=== PATIENT | male | born 1995 | race Caucasian/White ===

== ENCOUNTER 2016-04-01 13:23 | Emergency (ER) | payer SELFPAY ==
[2016-04-01] MEDS ORDERED: Ondansetron ODT 4 MG TAB ONE (14:01)
--- NOTE | 2016-04-01 14:27 | ERRECORD ---
[facility] EMERGENCY RECORD HPI NAUSEA/VOMITING/DIARRHEA (13:55 DHAM) CHIEF COMPLAINT: Patient presents for evaluation of nausea, Patient presents for evaluation of vomiting, Patient presents for evaluation of diarrhea. HISTORIAN: History provided by patient. LOCATION MALE: No localizing symptoms. QUALITY: Pain is dull in nature, described as cramping. SEVERITY: Current severity of pain rated as 6/10. TIME COURSE: Gradual onset of symptoms, 2, days priror to arrival, Symptoms are improving, "lots better today than yesterday but my work said that I needed a note.". ASSOCIATED WITH MALE: Associated with chills, Associated with diarrhea, Number of times: 5, No associated fever, No associated flank pain, No associated genital discharge, Associated with loss of appetite, Associated with nausea, No associated urinary tract infection signs or symptoms, Associated with vomiting, Number of times: 5 yest and 2x today. EXACERBATED BY: Patient's condition exacerbated by food. RELIEVED BY: Patient's condition relieved by nothing. ROS (13:57 DHAM) CONSTITUTIONAL: Historian reports chills, denies fever, denies lethargy. ENT: Historian denies rhinorrhea, denies sore throat, denies voice changes. CARDIOVASCULAR: Historian denies chest pain, no radiation, Historian denies diaphoresis, denies syncope, denies palpitations. RESPIRATORY: Historian denies cough, denies shortness of breath, denies sputum. GI: Historian reports abdominal pain, reports anorexia, reports diarrhea, reports nausea, reports vomiting. GENITOURINARY MALE: Historian denies dysuria, denies urinary frequency, denies urinary urgency. MUSCULOSKELETAL: Historian denies arthralgias, denies back pain, denies myalgias. SKIN: Historian denies rash, denies skin changes. NEUROLOGIC: Historian denies dizziness, denies headache. HEMO/LYMPHATIC: Historian denies abnormal blood clotting, denies easy bruising. PAST MEDICAL HISTORY MEDICAL HISTORY: Notes: head injury. (13:35 SCHI) MALE SURGICAL HISTORY: head. (13:35 SCHI) PSYCHIATRIC HISTORY: Notes: add. (13:35 SCHI) SOCIAL HISTORY: Patient denies alcohol use, Patient is a former drug user, abused methamphetamines, Drug history notes: stopped 5 months ago, Patient is a former tobacco user, smoked cigarettes, Patient quit smoking in the past year, Tobacco history &a-1R&a+25V*p+0X*v2547Q*c202B*c15G*c2P*p-0X&a-25V&a+1R Name: Ba Montoya : 1995 M20 MedRec: [id number] AcctNum: [id number] Prepared: MonApr 01, 2016 14:23 by Interface Page 1 of 3 pMD [facility] EMERGENCY RECORD notes: quit 4 months ago. (13:35 SCHI) NOTES: HAVE EXAMINED AND AGREE WITH PMHX, SOCIAL HX AND PAST FAMILY HX as noted in nursing docuentation. (13:59 DHAM) KNOWN ALLERGIES No Known Drug Allergies CURRENT MEDICATIONS (13:35 SCHI) None VITAL SIGNS (13:33 SCHI) VITAL SIGNS: BP: 124/62, Pulse: 79, Resp: 18, Temp: 98.1 (Tympanic), Pain: 6 (Intermittent), O2 sat: 95 on Room Air, Time: 04/01/2016 13:33. PHYSICAL EXAM (13:58 DHAM) CONSTITUTIONAL: Vital signs reviewed, Patient afebrile, Pulse normal, Blood pressure normal, Respiratory rate normal, Patient appears non toxic, Patient appears pain free, Patient alert and oriented to person, place and time, does not appear ill. HEAD: Head exam included findings of head atraumatic, normocephalic. EYES: Eye exam included findings of eyelids normal to inspection, Pupils equally round and reactive to light, Extraocular muscles intact, Conjunctiva normal. ENT: ENT exam normal, Ear exam normal, external ear normal, tympanic membranes normal, Nose exam normal, no bleeding from nares, Pharynx exam normal, Uvula exam normal, Tonsil exam normal, not enlarged, no exudates, Mouth exam normal, mucous membranes moist. NECK: Neck exam included findings of normal range of motion, Trachea midline, no carotid bruits, no jugular venous distention, no cervical adenopathy. RESPIRATORY CHEST: Respiratory exam included findings of no respiratory distress, Breath sounds clear, No wheezing, No rales, Breath sounds not diminished. CARDIOVASCULAR: Cardiovascular exam included findings of heart rate regular rate and rhythm, Heart sounds normal, Point of maximal impulse normal, Pedal pulses normal. ABDOMEN MALE: Abdominal exam included findings of abdomen nontender, Bowel sounds normal, Liver normal, Spleen normal, no distension, no peritoneal signs. BACK: Back exam normal. UPPER EXTREMITY: Upper extremity exam normal, Motor strength normal, Sensation intact. LOWER EXTREMITY: Lower extremity exam normal. NEURO: Neuro exam findings include patient oriented to person, place and time, Speech normal, Memory normal, Cranial nerves intact, Deep tendon reflexes normal, no focal motor deficits, no focal sensory deficits. SKIN: Skin exam included findings of skin warm, dry, no rash. &a-1R&a+25V*p+0X*p8389V*c202B*c15G*c2P*p-0X&a-25V&a+1R Name: Ba Montoya : 1995 10 MedRec: [id number] AcctNum: [id number] Prepared: MonApr 01, 2016 14:23 by Interface Page 2 of 3 pMD [facility] EMERGENCY RECORD LYMPHATIC: Lymphatic exam normal, Lymphatic exam included findings of cervical nodes normal. PSYCHIATRIC: Psychiatric exam included findings of patient oriented to person place and time, Normal affect. MEDICATION ADMINISTRATION SUMMARY Drug Name: Zofran ODT, Dose Ordered: 4 mg, Route: Sublingual, Status: Given, Time: 14:00 04/01/2016, Detailed record available in Medication Service section. PROBLEM LIST No recorded problems DIAGNOSIS (13:59 DHAM) FINAL: PRIMARY: viral gastroenteritis. PRESCRIPTION No recorded prescriptions DISPOSITION PATIENT: Disposition Type: Discharge, Disposition: *Discharge Home. (13:59 DHAM) Patient left the department. (14:19 [facility] Alberts: ZINA=MD Fer, Manas MAYA=GELACIO Fam, Jillian &a-1R&a+25V*p+0X*v9011V*c202B*c15G*c2P*p-0X&a-25V&a+1R Name: Ba Montoya : 1995 M20 MedRec: [id number] AcctNum: [id number] Prepared: MonApr 01, 2016 14:23 by Interface Page 3 of 3 pMD MTDD
--- NOTE | 2016-04-01 14:31 | PICIS ---
[facility] EMERGENCY RECORD TRIAGE (MonApr 01, 2016 13:35 SCHI) TRIAGE NOTES: stomach cramping, vomiting and diarrhea, feeling bad since yesterday. (MonApr 01, 2016 13:35 SCHI) PATIENT: NAME: Ba Montoya, AGE: 20, GENDER: male, : Mon1995, TIME OF GREET: MonApr 01, 2016 13:23, PREFERRED LANGUAGE: Nigerien, ETHNICITY: Not or , ECODE BILLING MAP: [facility], SSN: [id number], Zip Code: [address], KG WEIGHT: [phone], PHONE: , , , PERSON ID: [id number], PCP: none. (MonApr 01, 2016 13:35 SCHI) COMPLAINT: THROWING UP/NOTE FOR WORK. (MonApr 01, 2016 13:35 SCHI) ADMISSION: URGENCY: 4 Non Urgent, ADMISSION SOURCE: Home, TRANSPORT: Walk-in, BED: ED -04. (MonApr 01, 2016 13:35 SCHI) ASSESSMENT: Assessment: ALERT AND ORIENTED X 4, SKIN WARM AND DRY RESP EVEN AND UNLABORED,, Symptoms began yesterday. (13:35 SCHI) PAIN: Patient complains of pain described as, Location stomach, Pain is intermittent. (13:35 SCHI) TRIAGE SCREENING: Patient denies suicidal ideation, Patient denies presence of domestic violence. (13:35 SCHI) PROVIDERS: TRIAGE NURSE: Jillian Fam RN. (MonApr 01, 2016 13:35 SCHI) VITAL SIGNS: BP 124/62, Pulse 79, Resp 18, Temp 98.1, (Tympanic), Pain 6, (Intermittent), O2 Sat 95, on Room Air, Time 04/01/2016 13:33. (13:33 SCHI) PREVIOUS VISIT ALLERGIES: No Known Drug Allergies. (MonApr 01, 2016 13:35 SCHI) No Known Drug Allergies. (13:35 SCHI) KNOWN ALLERGIES No Known Drug Allergies CURRENT MEDICATIONS (13:35 SCHI) None VITAL SIGNS (13:33 SCHI) VITAL SIGNS: BP: 124/62, Pulse: 79, Resp: 18, Temp: 98.1 (Tympanic), Pain: 6 (Intermittent), O2 sat: 95 on Room Air, Time: 04/01/2016 13:33. NURSING ASSESSMENT: ABDOMEN CONSTITUTIONAL: Patient arrives ambulatory, Gait steady, History obtained from patient, Patient appears comfortable, Patient cooperative, Patient alert, Oriented to person, place and time, Skin warm, Skin dry, Skin normal in color, Mucous membranes pink, Mucous membranes moist, Patient is well-groomed, Patient complains of abd cramping and vomiting, diarrhea. missed work yesterday and today needs note to return. (13:40 SCHI) PAIN: cramping pain, intermittent, on a scale 0-10 patient rates pain as 6. (14:19 SCHI) &a-1R&a+25V*p+0X*h2270W*c202B*c15G*c2P*p-0X&a-25V&a+1R Name: Ba Montoya : 1995 M20 MedRec: [id number] AcctNum: [id number] Prepared: Sat Apr 02, 2016 03:17 by Interface Page 1 of 5 pMD [facility] EMERGENCY RECORD ABDOMEN: Abdomen assessment findings include abdomen symmetrical, Abdomen soft. (13:40 SCHI) NOTES: Patient tolerated procedure well. (13:40 SCHI) SAFETY: Side rails up, Cart/Stretcher in lowest position, Family at bedside, Hospital ID band on. (13:40 SCHI) NURSING PLAN OF CARE: Pain:, Patient is able to participate in development and implementation of nursing plan of care for pain. (13:40 SCHI) NURSING PROCEDURE: DISCHARGE NOTE (14:03 SCHI) DISCHARGE: Patient discharged to home, ambulating without assistance, driving self, unaccompanied, Summary of Care printed/ provided, Patient requested and was provided an electronic copy of Discharge Instructions, Transition record given to patient, Discharge instructions given to patient, Simple or moderate discharge teaching performed, Above person(s) verbalized understanding of discharge instructions and follow-up care, Patient treated and evaluated by physician. BELONGINGS: Belongings and valuables with patient at time of discharge include:, Belongings remain with patient, Valuables remain with patient. NOTES: Emotional support needed and given, Patient tolerated procedure well. Notes: PT IMPROVED, PT ENCOURAGED TO RETURN TO ER WITH NEW OR WORSENING SYMPTOMS. SAFETY: Side rails up, Cart/Stretcher in lowest position, Family at bedside, Hospital ID band on. MEDICATION ADMINISTRATION SUMMARY Drug Name: Zofran ODT, Dose Ordered: 4 mg, Route: Sublingual, Status: Given, Time: 14:00 04/01/2016, Detailed record available in Medication Service section. MEDICATION SERVICE (14:00 DHAM) Zofran ODT: Order: Zofran ODT (ondansetron) - Dose: 4 mg : Sublingual Schedule: Now Ordered by: Manas Monroe MD Entered by: Manas Monroe MD MonApr 01, 2016 14:01 Documented as given by: Jillian Fam RN MonApr 01, 2016 14:00 Patient, Medication, Dose, Route and Time verified prior to administration. Site: Medication administered S.L., Correct patient, time, route, dose and medication confirmed prior to administration, Patient advised of actions and side-effects prior to administration, Allergies confirmed and medications reviewed prior to administration. HPI NAUSEA/VOMITING/DIARRHEA (13:55 DHAM) CHIEF COMPLAINT: Patient presents for evaluation of &a-1R&a+25V*p+0X*c1205V*c202B*c15G*c2P*p-0X&a-25V&a+1R Name: Ba Motnoya : 1995 M20 MedRec: [id number] AcctNum: [id number] Prepared: Sat Apr 02, 2016 03:17 by Interface Page 2 of 5 pMD [facility] EMERGENCY RECORD nausea, Patient presents for evaluation of vomiting, Patient presents for evaluation of diarrhea. HISTORIAN: History provided by patient. LOCATION MALE: No localizing symptoms. QUALITY: Pain is dull in nature, described as cramping. SEVERITY: Current severity of pain rated as 6/10. TIME COURSE: Gradual onset of symptoms, 2, days priror to arrival, Symptoms are improving, "lots better today than yesterday but my work said that I needed a note.". ASSOCIATED WITH MALE: Associated with chills, Associated with diarrhea, Number of times: 5, No associated fever, No associated flank pain, No associated genital discharge, Associated with loss of appetite, Associated with nausea, No associated urinary tract infection signs or symptoms, Associated with vomiting, Number of times: 5 yest and 2x today. EXACERBATED BY: Patient's condition exacerbated by food. RELIEVED BY: Patient's condition relieved by nothing. ROS (13:57 DHAM) CONSTITUTIONAL: Historian reports chills, denies fever, denies lethargy. ENT: Historian denies rhinorrhea, denies sore throat, denies voice changes. CARDIOVASCULAR: Historian denies chest pain, no radiation, Historian denies diaphoresis, denies syncope, denies palpitations. RESPIRATORY: Historian denies cough, denies shortness of breath, denies sputum. GI: Historian reports abdominal pain, reports anorexia, reports diarrhea, reports nausea, reports vomiting. GENITOURINARY MALE: Historian denies dysuria, denies urinary frequency, denies urinary urgency. MUSCULOSKELETAL: Historian denies arthralgias, denies back pain, denies myalgias. SKIN: Historian denies rash, denies skin changes. NEUROLOGIC: Historian denies dizziness, denies headache. HEMO/LYMPHATIC: Historian denies abnormal blood clotting, denies easy bruising. PAST MEDICAL HISTORY MEDICAL HISTORY: Notes: head injury. (13:35 SCHI) MALE SURGICAL HISTORY: head. (13:35 SCHI) PSYCHIATRIC HISTORY: Notes: add. (13:35 SCHI) SOCIAL HISTORY: Patient denies alcohol use, Patient is a former drug user, abused methamphetamines, Drug history notes: stopped 5 months ago, Patient is a former tobacco user, smoked cigarettes, Patient quit smoking in the past year, Tobacco history notes: quit 4 months ago. (13:35 SCHI) NOTES: HAVE EXAMINED AND AGREE WITH PMHX, SOCIAL HX AND PAST &a-1R&a+25V*p+0X*n4502F*c202B*c15G*c2P*p-0X&a-25V&a+1R Name: Ba Montoya : 1995 M20 MedRec: [id number] AcctNum: [id number] Prepared: Sat Apr 02, 2016 03:17 by Interface Page 3 of 5 pMD [facility] EMERGENCY RECORD FAMILY HX as noted in nursing docuentation. (13:59 DHAM) PHYSICAL EXAM (13:58 DHAM) CONSTITUTIONAL: Vital signs reviewed, Patient afebrile, Pulse normal, Blood pressure normal, Respiratory rate normal, Patient appears non toxic, Patient appears pain free, Patient alert and oriented to person, place and time, does not appear ill. HEAD: Head exam included findings of head atraumatic, normocephalic. EYES: Eye exam included findings of eyelids normal to inspection, Pupils equally round and reactive to light, Extraocular muscles intact, Conjunctiva normal. ENT: ENT exam normal, Ear exam normal, external ear normal, tympanic membranes normal, Nose exam normal, no bleeding from nares, Pharynx exam normal, Uvula exam normal, Tonsil exam normal, not enlarged, no exudates, Mouth exam normal, mucous membranes moist. NECK: Neck exam included findings of normal range of motion, Trachea midline, no carotid bruits, no jugular venous distention, no cervical adenopathy. RESPIRATORY CHEST: Respiratory exam included findings of no respiratory distress, Breath sounds clear, No wheezing, No rales, Breath sounds not diminished. CARDIOVASCULAR: Cardiovascular exam included findings of heart rate regular rate and rhythm, Heart sounds normal, Point of maximal impulse normal, Pedal pulses normal. ABDOMEN MALE: Abdominal exam included findings of abdomen nontender, Bowel sounds normal, Liver normal, Spleen normal, no distension, no peritoneal signs. BACK: Back exam normal. UPPER EXTREMITY: Upper extremity exam normal, Motor strength normal, Sensation intact. LOWER EXTREMITY: Lower extremity exam normal. NEURO: Neuro exam findings include patient oriented to person, place and time, Speech normal, Memory normal, Cranial nerves intact, Deep tendon reflexes normal, no focal motor deficits, no focal sensory deficits. SKIN: Skin exam included findings of skin warm, dry, no rash. LYMPHATIC: Lymphatic exam normal, Lymphatic exam included findings of cervical nodes normal. PSYCHIATRIC: Psychiatric exam included findings of patient oriented to person place and time, Normal affect. EVENTS TRANSFER: Triage to Emergency Main ED -04. (MonApr 01, 2016 13:35 SCHI) Removed from Emergency Main ED -04. (14:19 SCHI) O2SAT INTERPRETATION (13:59 DHAM) O2SAT: Single pulse oximetry, Oxygen saturation 95%, on room air, Oxygen saturation interpretation: Normal, No intervention required. &a-1R&a+25V*p+0X*l0731A*c202B*c15G*c2P*p-0X&a-25V&a+1R Name: Ba Montoya : 1995 M20 MedRec: [id number] AcctNum: [id number] Prepared: Sat Apr 02, 2016 03:17 by Interface Page 4 of 5 pMD [facility] EMERGENCY RECORD PROBLEM LIST No recorded problems DIAGNOSIS (13:59 DHAM) FINAL: PRIMARY: viral gastroenteritis. DISPOSITION PATIENT: Disposition Type: Discharge, Disposition: *Discharge Home. (13:59 DHAM) Patient left the department. (14:19 SCHI) INSTRUCTION (14:00 DHAM) DISCHARGE: GASTROENTERITIS, VIRAL (7Y-ADULT). SPECIAL: No milk or caffeine for the next 48 hours Gatorade or powerade small volumes frequently with dry saltine crackers for today Out of work yesterday and today . Return for signs of dehydration that we discussed or for any other concerns. PRESCRIPTION No recorded prescriptions IMAGING (14:17 SCHI) *DISCHARGE INSTRUCTIONS RECEIPT: Image captured from scanner. *SUPPLY CHARGE SHEET: Image captured from scanner. ADMIN DIGITAL SIGNATURE: GELACIO Fam, Jillian. (14:19 SCHI) MD Monroe Darren. (Sat Apr 02, 2016 03:03 DHAM) Alberts: ZINA=MD Monroe Darren SCHI=GELACIO Fam Slinda &a-1R&a+25V*p+0X*y5906F*c202B*c15G*c2P*p-0X&a-25V&a+1R Name: Ba Montoya : 1995 M20 MedRec: [id number] AcctNum: [id number] Prepared: Sat Apr 02, 2016 03:17 by Interface Page 5 of 5 pMD MTDD
== END 2016-04-01 14:03 | disposition home or self-care (01) ==
LOC: MADERS 13:23
DX: A08.4 Viral intestinal infection, unspecified (principal); Z87.891 Personal history of nicotine dependence
CPT/HCPCS: 99283; Q0162

== ENCOUNTER 2016-04-13 16:42 | Emergency (ER) | payer SELFPAY ==
[2016-04-13] MEDS ORDERED: Fentanyl 100 MCG/2 ML VIAL ONE ×2 (16:47→17:44)
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
[2016-04-13 17:59] LABS: Bilirubin Negative (Negative); Blood, Urine Negative (Negative); Clarity Clear (Clear); Glucose, Urine (Dipstick) Negative (Negative); Leukocyte Negative (Negative); Nitrite Negative (Negative); Protein, Urine (Dipstick) Negative (Neg-Trace); Urobilinogen 0.2 mg/dL (0.2-1.0)
[2016-04-13 18:03] LABS: Hemoglobin 16.7 g/dL (14.0-18.0); MDiff Complete? YES; Mean Corpuscular HGB CONC 35.8 g/dL (32.0-36.0); Mean Corpuscular Hemoglobin 31.1 pg (25.0-35.0); Mean Platelet Volume 8.2 fL (7.4-10.4); Platelet Count 376 thou/uL (130-400); RBC Distribution Width 11.2 % (11.5-14.5); Red Blood Cell (RBC) Count 5.35 mill/uL (4.00-5.20)
[2016-04-13 18:04] LABS: Band 2 % (5-11); Eosinophils 2 % (0-10); Lymphocytes 38 % (28-48); Monocytes 8 % (0-4)
[2016-04-13 18:05] LABS: Neutrophil 50 % (31-61)
[2016-04-13 18:16] LABS: ALT (SGPT) 51 U/L (0-55); AST (SGOT) 29 U/L (10-45); Albumin 4.6 g/dL (3.5-5.0); Alkaline Phosphatase 122 U/L (Less than 750); Anion Gap 22 mmol/L (10-20); BUN (Urea Nitrogen) 13 mg/dL (8.4-21.0); Bilirubin, Total 0.5 mg/dL (0.2-1.2); Calc. Creatinine Clearance 0 mL/min (70-130); Calcium 9.6 mg/dL (7.8-10.44); Carbon Dioxide 19 mmol/L (22-29); Chloride 102 mmol/L (98-107); Estimated GFR-MDRD Greater than 90; Glucose 131 mg/dL (70-105); Potassium 3.1 mmol/L (3.5-5.1); Protein, Total 7.6 g/dL (6.0-8.3); Sodium 140 mmol/L (136-145)
[2016-04-13 18:16] LABS: Amphetamine Not Detected (NotDetected); Barbiturates Screen Not Detected (NotDetected); Benzodiazepine Screen Not Detected (NotDetected); Cocaine Metabolite Screen Not Detected (NotDetected); Medtox Control Line Valid? VALID (VALID); Methadone Not Detected (NotDetected); Methamphetamine Not Detected (NotDetected); Opiate Screen Not Detected (NotDetected); Oxycodone Screen Not Detected (NotDetected); Phencyclidine (PCP) Not Detected (NotDetected); THC/Cannabinoid Screen Not Detected (NotDetected); Tricyclic Screen Not Detected (NotDetected)
== END 2016-04-13 17:51 | disposition short-term general hospital (02) ==
LOC: MADERS 16:42
DX: T52.0X1A Toxic effect of petroleum products, accidental (unintentional), initial encounter (principal); T20.62XA Corrosion of second degree of lip(s), initial encounter; T23.602A Corrosion of second degree of left hand, unspecified site, initial encounter; T23.601A Corrosion of second degree of right hand, unspecified site, initial encounter; T20.64XA Corrosion of second degree of nose (septum), initial encounter; T20.66XA Corrosion of second degree of forehead and cheek, initial encounter; T22.60XA Corrosion of second degree of shoulder and upper limb, except wrist and hand, unspecified site, initial encounter; T32.11 Corrosions involving 10-19% of body surface with 10-19% third degree corrosion; Z87.891 Personal history of nicotine dependence
CPT/HCPCS: 71010; 80053; 80306; 81003; 85025; 90471; 96374; 96376; J3010

== ENCOUNTER 2018-12-29 01:27 | Emergency (ER) | payer SELFPAY ==
[2018-12-29] MEDS ORDERED: Sodium Chloride 0.9% 100 ML ONE (02:02)
[2018-12-29] MEDS ORDERED: cefTRIAXone\\ROCEPHIN 1 GM VIAL ONE (02:02)
[2018-12-29] MEDS ORDERED: Sodium Chloride 0.9% 1,000 ML ONE (02:02)
[2018-12-29] MEDS ORDERED: Sodium Chloride 0.9% 250 ML 250 ML ONE (02:03)
[2018-12-29 02:14] LABS: #Basophils 0.1 thou/uL (0.0-0.2); #Eosinphils 0.4 thou/uL (0.0-0.7); #Lymphocytes 1.7 thou/uL (1.20-3.40); #Monocytes 0.8 thou/uL (0.11-0.59); #Neutrophils 4.6 thou/uL (1.40-6.50); %Basophils 0.9 % (0.0-1.0); %Eosinophils 5.8 % (0.0-10.0); %Neutrophils 60.4 % (42.0-75.0); Hemoglobin 14.7 g/dL (14.0-18.0); Mean Corpuscular HGB CONC 32.6 g/dL (32.0-36.0); Mean Corpuscular Hemoglobin 29.1 pg (27.0-31.0); Mean Corpuscular Volume 89.5 fL (78.0-98.0); Mean Platelet Volume 6.4 fL (7.4-10.4); Platelet Count 351 thou/uL (130-400); RBC Distribution Width 12.3 % (11.5-14.5); Red Blood Cell (RBC) Count 5.04 mill/uL (4.70-6.10); White Blood Cell (WBC) Count 7.6 thou/uL (4.8-10.8)
[2018-12-29 02:47] LABS: Anion Gap 16 mmol/L (10-20); BUN (Urea Nitrogen) 10 mg/dL (8.9-20.6); Calc. Creatinine Clearance 0 mL/min (70-130); Calcium 9.4 mg/dL (7.8-10.44); Carbon Dioxide 24 mmol/L (22-29); Chloride 104 mmol/L (98-107); Estimated GFR-MDRD Greater than 90; Glucose 124 mg/dL (70-105); Potassium 3.8 mmol/L (3.5-5.1); Sodium 140 mmol/L (136-145)
--- NOTE | 2018-12-29 08:39 | RAD ---
LEFT KNEE 4 VIEWS: Date: 12/29/18 HISTORY: Cellulitis. FINDINGS: No fracture, dislocation, or bony destruction is seen. No periosteal reaction is identified. IMPRESSION: No radiographic evidence of osteomyelitis. POS: [facility]
--- NOTE | 2018-12-29 08:41 | RAD ---
LEFT FEMUR 2 VIEWS: Date: 12/29/18 HISTORY: Cellulitis. FINDINGS/IMPRESSION: The left femur is intact. There is no radiographic evidence of osteomyelitis. POS: [facility]
== END 2018-12-29 02:38 | disposition short-term general hospital (02) ==
LOC: MADERS 01:27
DX: L03.116 Cellulitis of left lower limb (principal); L97.229 Non-pressure chronic ulcer of left calf with unspecified severity; F17.210 Nicotine dependence, cigarettes, uncomplicated
CPT/HCPCS: 36415; 80048; 83605; 85025; 87040; 87070; 87077; 87205; 96374; 96375; J0696; J3370; J3490; J7050

== ENCOUNTER 2019-02-16 19:12 | Emergency (ER) | payer SELFPAY ==
[2019-02-16 20:03] LABS: Bilirubin Negative (Negative); Blood, Urine Negative (Negative); Clarity Slightly Cloudy (Clear); Glucose, Urine (Dipstick) Negative (Negative); Leukocyte Negative (Negative); Nitrite Negative (Negative); Protein, Urine (Dipstick) Negative (Neg-Trace); Urobilinogen 0.2 mg/dL (Less than 2)
[2019-02-17 15:42] LABS: HIV (1/2) Antibody/Antigen Non-Reactive (NonReactive)
[2019-02-19 20:51] LABS: Chlam.trachomatis by PCR,Urine Not Detected (NotDetected)
== END 2019-02-16 20:20 | disposition home or self-care (01) ==
LOC: MADERS 19:12
DX: Z20.2 Contact with and (suspected) exposure to infections with a predominantly sexual mode of transmission (principal); F98.8 Other specified behavioral and emotional disorders with onset usually occurring in childhood and adolescence; F17.210 Nicotine dependence, cigarettes, uncomplicated
CPT/HCPCS: 81003; 87389; 87491; 87591; 99283